=== PATIENT | female | born 2005 | race Caucasian/White ===

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

== ENCOUNTER 2023-09-08 04:14 | Emergency (ER) | payer OTHER, SELFPAY ==
[2023-09-08] MEDS ORDERED: Ondansetron ODT 4 MG TAB ONE (04:42)
== END 2023-09-08 05:33 | disposition home or self-care (01) ==
LOC: CSHERS 04:14
DX: R11.2 Nausea with vomiting, unspecified (principal); R10.84 Generalized abdominal pain
CPT/HCPCS: 99283; Q0162